=== PATIENT | female | born 2000 | race Caucasian/White ===

== ENCOUNTER 2024-01-31 08:48 | Emergency (ER) | payer BC ==
[2024-01-31 08:56] VITALS: BP 120/77; PULSE 80; RESP 16; TEMP 98; BMI 36.7
== END 2024-01-31 09:36 | disposition home or self-care (01) ==
LOC: JER 08:48
DX: R53.83 Other fatigue (principal); M79.10 Myalgia, unspecified site; U07.1 COVID-19
CPT/HCPCS: 0241U-QW; 99283-25